=== PATIENT | male | born 1965 | race Hispanic/Latino ===

== ENCOUNTER 2022-05-17 05:02 | Observation (INO) | payer BC, OTHER ==
[~2022-05-17] VITALS: Ht 172.7 cm; Wt 88.0 kg
[~2022-05-17 05:02] MED LIST: METOPROLOL TART25 MG PO; PANTOPRAZOLE SO40 MG PO
[2022-05-17] MEDS ORDERED: ONDANSETRON HCL INJ 2MG/ML 2ML 2 MG/ML VIAL IV STA (05:10)
[2022-05-17] MEDS ORDERED: ASPIRIN 81 MG CHEW TAB PO ONE (05:15)
[2022-05-17] MEDS ORDERED: Morphine 2mg Syringe 2 MG/ML SYR IV ONE (05:15)
[2022-05-17] MEDS ORDERED: SODIUM CHLORIDE FLUSH 10 ML SYR IV PRN (05:15)
[2022-05-17] MEDS ORDERED: ASPIRIN 81 MG CHEW TAB ONE (05:25)
[2022-05-17] MEDS ORDERED: ONDANSETRON HCL INJ 2MG/ML 2ML 2 MG/ML VIAL ONE (05:27)
[2022-05-17] MEDS ORDERED: Morphine 2mg Syringe 2 MG/ML SYR ONE (05:28)
[2022-05-17 05:49] LABS: BASOPHILS # (AUTO) 0.1 (0.0-0.1); BASOPHILS % 0.4 % (0.0-1.0); EOSINOPHILS # (AUTO) 0.1 (0.0-0.4); EOSINOPHILS % 1.1 % (0.0-6.0); HEMATOCRIT 49.7 % (38.2-49.6); HEMOGLOBIN 16.1 g/dL (14.0-18.0); LYMPHOCYTES # (AUTO) 3.3 (1.0-3.2); LYMPHOCYTES % 25.1 % (18.0-39.1); MEAN CORPUSCULAR HEMOGLOBIN 28.7 pg (28-32); MEAN CORPUSCULAR HGB CONC 32.4 g/dL (31-35); MEAN CORPUSCULAR VOLUME 88.6 fL (81-99); MONOCYTES # (AUTO) 1.1 (0.2-0.8); MONOCYTES % 8.3 % (4.4-11.3); NEUTROPHILS # (AUTO) 8.3 (2.1-6.9); NEUTROPHILS % 64.2 % (38.7-80.0); PLATELET COUNT 271 x10e3/uL (140-360); RED BLOOD COUNT 5.61 x10e6/uL (4.3-5.7); RED CELL DISTRIBUTION WIDTH 13.2 % (11.7-14.4)
[2022-05-17 06:07] LABS: ANION GAP 12.7 mmol/L (8-16); CALCIUM 9.5 mg/dL (8.4-10.2); CREATININE, SERUM 0.91 mg/dL (0.72-1.25); POTASSIUM 3.7 mmol/L (3.5-5.1)
[2022-05-17] MEDS ORDERED: METOPROLOL TART25 MG PO (07:52)
[2022-05-17] MEDS ORDERED: ATORVASTATIN CA20 MG PO (07:52)
[2022-05-17 10:52] VITALS: BP 142/79
[2022-05-17 11:30] VITALS: BP 142/79
[2022-05-17] MEDS ORDERED: ACETAMINOPHEN 325 MG TAB PO PRN (11:45)
[2022-05-17 16:04] VITALS: BP 117/91
[2022-05-17 17:44] LABS: CREATINE KINASE MB 0.9 ng/mL (0-5.0)
[2022-05-17 19:35] VITALS: BP 153/87
[2022-05-17 20:00] VITALS: BP 153/87
[2022-05-18] VITALS: BP 128/74
[2022-05-18 04:00] VITALS: BP 125/82
[2022-05-18 05:36] LABS: BASOPHILS % 0.4 % (0.0-1.0); EOSINOPHILS # (AUTO) 0.1 (0.0-0.4); EOSINOPHILS % 1.2 % (0.0-6.0); HEMATOCRIT 45.1 % (38.2-49.6); HEMOGLOBIN 15.1 g/dL (14.0-18.0); LYMPHOCYTES # (AUTO) 2.4 (1.0-3.2); LYMPHOCYTES % 23.8 % (18.0-39.1); MEAN CORPUSCULAR HEMOGLOBIN 28.3 pg (28-32); MEAN CORPUSCULAR HGB CONC 33.5 g/dL (31-35); MEAN CORPUSCULAR VOLUME 84.5 fL (81-99); MONOCYTES # (AUTO) 0.7 (0.2-0.8); MONOCYTES % 7.3 % (4.4-11.3); NEUTROPHILS # (AUTO) 6.8 (2.1-6.9); NEUTROPHILS % 66.5 % (38.7-80.0); PLATELET COUNT 233 x10e3/uL (140-360); RED BLOOD COUNT 5.34 x10e6/uL (4.3-5.7); RED CELL DISTRIBUTION WIDTH 13.2 % (11.7-14.4)
[2022-05-18 05:52] LABS: ANION GAP 13.7 mmol/L (8-16); CALCIUM 8.7 mg/dL (8.4-10.2); CREATININE, SERUM 0.81 mg/dL (0.72-1.25); POTASSIUM 3.7 mmol/L (3.5-5.1)
[2022-05-18 06:20] LABS: CREATINE KINASE MB 1.2 ng/mL (0-5.0)
[2022-05-18 08:00] VITALS: BP 125/82
[2022-05-18 08:22] VITALS: BP 139/95
[2022-05-18] MEDS ORDERED: ATORVASTATIN 20 MG TAB PO SCH (09:00)
[2022-05-18] MEDS ORDERED: METOPROLOL TARTRATE 25 MG TAB PO SCH (09:00)
[2022-05-18] MEDS ORDERED: PANTOPRAZOLE SOD 40 MG TABEC PO SCH (09:00)
== END 2022-05-18 08:35 | disposition home or self-care (01) ==
LOC: ER 05:10 → ERHOLD 09:03 → MED/SURG2 10:43
PROVIDERS: ADMIT Internal Medicine; ATTEND Internal Medicine
DX: R07.89 Other chest pain (principal); E78.00 Pure hypercholesterolemia, unspecified; K21.9 Gastro-esophageal reflux disease without esophagitis; Z20.822 Contact with and (suspected) exposure to COVID-19; I25.2 Old myocardial infarction; I10 Essential (primary) hypertension
CPT/HCPCS: 0223U; 36415 ×2; 71046; 80048; 80053; 82550 ×2; 82553 ×2; 84484 ×2; 85025 ×2; 93005; 94760; 99284; G0378 ×2; J2270; J2405